=== PATIENT | female | born 1940 | race Caucasian/White ===

== ENCOUNTER 2017-09-17 18:30 | Inpatient (IN) | payer MEDICARE, OTHER ==
[2017-09-17] MEDS: SODIUM CHLORIDE 0.9% 1L BAG IV* (19:23)
[2017-09-17] MEDS: CEFEPIME 2GM/50 ML (PMX) 50 ML IVPB (19:25)
[2017-09-17 19:27] LABS: ADD MAN DIFF? NO
[2017-09-17 19:31] LABS: WHITE BLOOD COUNT 22.7 10^3/ul (4.8-10.8)
[2017-09-17 19:31] LABS: ABNORMAL IP MESSAGE 1; BASOPHILS % 0.1 % (0.0-2.0); HEMATOCRIT 26.1 % (37.0-47.0); HEMOGLOBIN 8.8 g/dl (12.0-16.0); LYMPHOCYTES # 0.7 10^3/ul (0.8-2.9); LYMPHOCYTES % 3.1 % (15.0-51.0); MEAN CORPUSCULAR HEMOGLOBIN 27.2 pg (29.0-33.0); MEAN CORPUSCULAR HGB CONC 33.7 g/dl (32.0-37.0); MEAN CORPUSCULAR VOLUME 80.8 fl (82.0-101.0); MEAN PLATELET VOLUME 10.4 fl (7.4-10.4); MONOCYTE # 1.3 10^3/ul (0.3-0.9); MONOCYTES % 5.5 % (0.0-11.0); NEUTROPHIL # 20.6 10^3/ul (1.6-7.5); NEUTROPHILS % 90.7 % (39.0-77.0); PLATELET COUNT 452 10^3/UL (140-415); RED BLOOD COUNT 3.23 10^6/ul (4.20-5.40); RED CELL DISTRIBUTION WIDTH 13.9 % (11.5-14.5)
[2017-09-17 19:38] LABS: POSITIVE DIFF @See below
[2017-09-17 19:47] LABS: INR 1.19; PROTIME 15.3 Sec (11.9-14.9); PT RATIO 1.2
[2017-09-17 19:48] LABS: PARTIAL THROMBOPLASTIN TIME 38.1 Sec (25.0-35.0)
[2017-09-17 19:53] LABS: ALANINE AMINOTRANSFERASE 30 IU/L (13-69); ALBUMIN 4.1 g/dl (3.3-4.9); ALKALINE PHOSPHATASE 98 IU/L (42-121); ANION GAP 19 (8-16); ASPARTATE AMINO TRANSFERASE 27 IU/L (15-46); BILIRUBIN,INDIRECT 0.4 mg/dl (0-1.1); BILIRUBIN,TOTAL 0.4 mg/dl (0.2-1.3); BLOOD UREA NITROGEN 13 mg/dl (7-20); CALCIUM 9.2 mg/dl (8.4-10.2); CARBON DIOXIDE 22 mmol/L (21-31); CHLORIDE 94 mmol/L (97-110); CREATININE 0.86 mg/dl (0.44-1.00); GLUCOSE 228 mg/dl (70-220); LIPASE 31 U/L (23-300); POTASSIUM 3.1 mmol/L (3.5-5.1); SODIUM 132 mmol/L (135-144); TOTAL PROTEIN 8.2 g/dl (6.1-8.1)
[2017-09-17 19:54] LABS: LACTIC ACID 1.3 mmol/L (0.5-2.0)
[2017-09-17 20:17] LABS: TROPONIN-I < 0.012 ng/ml (0.00-0.12)
[2017-09-17 20:39] LABS: URINE BLOOD (Dip) POC 3+ (NEGATIVE); URINE GLUCOSE (Dip) POC Negative (NEGATIVE); URINE KETONES (Dip) POC Trace (NEGATIVE); URINE LEUKOCYTE EST (Dip) POC 3+ (NEGATIVE); URINE NITRITE (Dip) POC Negative (NEGATIVE); URINE TOTAL PROTEIN POC 2+ (NEGATIVE)
[2017-09-17 21:03] LABS: ADD UMIC YES; UR ASCORBIC ACID NEGATIVE (NEGATIVE); UR BACTERIA MODERATE /HPF (NONE SEEN); UR BILIRUBIN (Dip) NEGATIVE (NEGATIVE); UR BLOOD (Dip) 2+ mg/dL (NEGATIVE); UR CLARITY CLOUDY (CLEAR); UR COLOR YELLOW (YELLOW); UR GLUCOSE (Dip) NEGATIVE (NEGATIVE); UR KETONES (Dip) TRACE mg/dL (NEGATIVE); UR LEUKOCYTE ESTERASE (Dip) 3+ Leu/ul (NEGATIVE); UR NITRITE (Dip) NEGATIVE (NEGATIVE); UR NONSQUAMOUS EPITHELIAL CELL 15 /HPF (NONE SEEN); UR RBC 15 /HPF (0-5); UR SPECIFIC GRAVITY (Dip) 1.015 (1.003-1.030); UR SQUAMOUS EPITHELIAL CELL MODERATE /HPF (FEW); UR TOTAL PROTEIN (Dip) 2+ mg/dl (NEGATIVE); UR UROBILINOGEN (Dip) NEGATIVE (NEGATIVE); UR WBC > 182 /HPF (0-5)
[2017-09-17] MEDS ORDERED: hydrALAzine 20 MG INJ IV (21:30)
[2017-09-17] MEDS ORDERED: NA PHOSPHATE/BIPHOS 133 ML ENEMA PR (21:30)
[2017-09-17] MEDS ORDERED: VANCOMYCIN IV PER PHARMACY XX (21:30)
[2017-09-17] MEDS ORDERED: MAGNESIUM HYDROXIDE 30ML CUP PO (21:30)
[2017-09-17] MEDS ORDERED: NACL 0.9% 3 ML SYG IV (21:30)
[2017-09-17] MEDS ORDERED: NITROGLYCERIN (SL) 0.4 MG TAB SL (21:30)
[2017-09-17] MEDS ORDERED: DOCUSATE SODIUM 100 MG CAP PO (21:30)
[2017-09-17 21:57] LABS: MAGNESIUM 1.5 mg/dl (1.7-2.5)
[2017-09-17] MEDS ORDERED: ACETAMINOPHEN 325 MG TAB PO (22:00)
[2017-09-17] MEDS ORDERED: ONDANSETRON 4 MG INJ IV (22:00)
[2017-09-17 22:07] LABS: B-TYPE NATRIURETIC PEPTIDE 3010 PG/ML (0-450)
[2017-09-17 22:09] LABS: LACTIC ACID 1.4 mmol/L (0.5-2.0)
[2017-09-17 22:14] LABS: FREE T4 (FREE THYROXINE) 1.21 ng/dl (0.78-2.44)
[2017-09-17] MEDS: POTASSIUM CHLORIDE (SR) 20 MEQ TAB PO (22:23)
[2017-09-17] MEDS: ONDANSETRON 4 MG INJ IV (22:24)
[2017-09-17] MEDS ORDERED: IOHEXOL 14.3 MG(I)/ML (ADULT) BTL PO (23:30)
[2017-09-18 00:04] LABS: LACTIC ACID 1.5 mmol/L (0.5-2.0)
[2017-09-18] MEDS: SOD CHLORIDE 0.9% 100 ML (01:28)
[2017-09-18] MEDS: IOHEXOL 300MG/ML 150 ML BTL (01:29)
[2017-09-18] MEDS: PIPER-TAZO 3.375 GM IV (PMX) 100 ML IVPB ×5 (03:35→23:27)
[2017-09-18] MEDS: ACETAMINOPHEN 325 MG TAB PO ×2 (03:35→20:36)
[2017-09-18] MEDS: VANCOMYCIN 2 GM in SOD CHLORIDE 0.9% 500 ML IVPB (03:58)
[2017-09-18 06:47] LABS: ADD MAN DIFF? NO
[2017-09-18] MEDS: SOD CHLORIDE 0.45% 1,000 ML IV ×2 (06:52→17:58)
[2017-09-18] MEDS: MAGNESIUM SULFATE 2 GM/50 ML 50 ML IVPB (06:52)
[2017-09-18 06:53] LABS: BASOPHILS % 0.1 % (0.0-2.0); HEMATOCRIT 24.6 % (37.0-47.0); HEMOGLOBIN 8.1 g/dl (12.0-16.0); LYMPHOCYTES # 0.8 10^3/ul (0.8-2.9); LYMPHOCYTES % 4.4 % (15.0-51.0); MEAN CORPUSCULAR HEMOGLOBIN 27.1 pg (29.0-33.0); MEAN CORPUSCULAR HGB CONC 32.9 g/dl (32.0-37.0); MEAN CORPUSCULAR VOLUME 82.3 fl (82.0-101.0); MEAN PLATELET VOLUME 10.1 fl (7.4-10.4); MONOCYTES % 5.8 % (0.0-11.0); NEUTROPHILS % 88.8 % (39.0-77.0); PLATELET COUNT 386 10^3/UL (140-415); RED BLOOD COUNT 2.99 10^6/ul (4.20-5.40)
[2017-09-18] MEDS: FAMOTIDINE 20 MG INJ IV (07:03)
[2017-09-18 07:23] LABS: ANION GAP 13 (8-16); BLOOD UREA NITROGEN 14 mg/dl (7-20); CALCIUM 8.6 mg/dl (8.4-10.2); CARBON DIOXIDE 24 mmol/L (21-31); CHLORIDE 99 mmol/L (97-110); CREATININE 0.87 mg/dl (0.44-1.00); GLUCOSE 214 mg/dl (70-220); MAGNESIUM 1.5 mg/dl (1.7-2.5); PHOSPHORUS 3.2 mg/dl (2.5-4.9); POTASSIUM 3.2 mmol/L (3.5-5.1); SODIUM 133 mmol/L (135-144)
[2017-09-18 07:28] LABS: CHOL/HDL RATIO 3.7 RATIO; HDL CHOLESTEROL 31 mg/dl (33-92); LDL CHOLESTEROL,CALCULATED 61 mg/dl; TRIGLYCERIDES 116 mg/dl (0-149)
[2017-09-18 07:28] LABS: CHOLESTEROL 115 mg/dl (100-200)
[2017-09-18 07:39] LABS: HEMOGLOBIN A1C 6.3 % (0-5.9)
[2017-09-18] MEDS: LORAZEPAM 2 MG INJ IV (07:52)
[2017-09-18 08:02] LABS: CARCINOEMBRYONIC ANTIGEN 5.2 ng/ml (0.0-5.0)
[2017-09-18 08:06] LABS: CANCER ANTIGEN 19-9 8.4 U/ml (0.0-37.0)
[2017-09-18 08:23] LABS: ALPHA FETOPROTEIN 1.97 IU/L (0.00-7.21)
[2017-09-18] MEDS: GABAPENTIN 300 MG CAP PO ×3 (08:40→20:36)
[2017-09-18] MEDS: POTASSIUM CHLORIDE (SR) 10 MEQ TAB PO ×3 (08:41→20:36)
[2017-09-18] MEDS: HEPARIN 5,000 UNIT/0.5 ML VIAL SC ×2 (08:42→20:39)
[2017-09-18] MEDS: MAGNESIUM SULFATE 3 GM in DEXTROSE 5% 100 ML IVPB (14:08)
[2017-09-18] MEDS: INSULIN DETEMIR [LEVEMIR] 3ML CART SC (20:38)
[2017-09-19] MEDS: morphine 2 MG INJ IV ×3 (00:47→18:22)
[2017-09-19] MEDS: VANCOMYCIN 1.25 GM in SOD CHLORIDE 0.45% 250 ML IVPB (00:47)
[2017-09-19] MEDS: PIPER-TAZO 3.375 GM IV (PMX) 100 ML IVPB ×2 (05:28→12:23)
[2017-09-19 09:29] LABS: ADD MAN DIFF? NO
[2017-09-19 09:33] LABS: WHITE BLOOD COUNT 20.7 10^3/ul (4.8-10.8)
[2017-09-19 09:33] LABS: BASOPHILS % 0.1 % (0.0-2.0); HEMATOCRIT 26.9 % (37.0-47.0); HEMOGLOBIN 8.6 g/dl (12.0-16.0); LYMPHOCYTES # 1.6 10^3/ul (0.8-2.9); LYMPHOCYTES % 7.5 % (15.0-51.0); MEAN CORPUSCULAR VOLUME 84.3 fl (82.0-101.0); MEAN PLATELET VOLUME 10.9 fl (7.4-10.4); MONOCYTES % 4.6 % (0.0-11.0); NEUTROPHILS % 87.1 % (39.0-77.0); PLATELET COUNT 411 10^3/UL (140-415); RED BLOOD COUNT 3.19 10^6/ul (4.20-5.40); RED CELL DISTRIBUTION WIDTH 14.5 % (11.5-14.5)
[2017-09-19] MEDS: SOD CHLORIDE 0.45% 1,000 ML IV (09:41)
[2017-09-19] MEDS: FAMOTIDINE 20 MG INJ IV (09:41)
[2017-09-19] MEDS: GABAPENTIN 300 MG CAP PO ×3 (09:42→20:57)
[2017-09-19] MEDS: POTASSIUM CHLORIDE (SR) 10 MEQ TAB PO ×2 (09:42→20:56)
[2017-09-19] MEDS: HEPARIN 5,000 UNIT/0.5 ML VIAL SC ×2 (09:45→21:01)
[2017-09-19] MEDS: ONDANSETRON 4 MG INJ IV ×2 (09:58→18:22)
[2017-09-19 10:01] LABS: ANION GAP 15 (8-16); BLOOD UREA NITROGEN 16 mg/dl (7-20); CALCIUM 8.8 mg/dl (8.4-10.2); CARBON DIOXIDE 20 mmol/L (21-31); CHLORIDE 106 mmol/L (97-110); CREATININE 0.93 mg/dl (0.44-1.00); GLUCOSE 108 mg/dl (70-220); POTASSIUM 4.1 mmol/L (3.5-5.1); SODIUM 137 mmol/L (135-144)
[2017-09-19 10:27] LABS: MAGNESIUM 2.5 mg/dl (1.7-2.5)
[2017-09-19 10:27] LABS: PHOSPHORUS 2.4 mg/dl (2.5-4.9)
[2017-09-19 10:36] LABS: LIPASE 45 U/L (23-300)
[2017-09-19] MEDS: INSULIN DETEMIR [LEVEMIR] 3ML CART SC (21:02)
[2017-09-20] MEDS: morphine 2 MG INJ IV ×3 (04:47→20:44)
[2017-09-20] MEDS: GABAPENTIN 300 MG CAP PO ×3 (08:12→20:47)
[2017-09-20] MEDS: POTASSIUM CHLORIDE (SR) 10 MEQ TAB PO ×2 (08:12→20:47)
[2017-09-20] MEDS: HEPARIN 5,000 UNIT/0.5 ML VIAL SC ×2 (08:15→20:55)
[2017-09-20 08:24] LABS: ADD MAN DIFF? NO
[2017-09-20 08:28] LABS: BASOPHILS % 0.2 % (0.0-2.0); EOSINOPHILS % 0.1 % (0.0-7.0); HEMATOCRIT 26.6 % (37.0-47.0); HEMOGLOBIN 8.4 g/dl (12.0-16.0); LYMPHOCYTES # 1.8 10^3/ul (0.8-2.9); LYMPHOCYTES % 9.1 % (15.0-51.0); MEAN CORPUSCULAR HEMOGLOBIN 26.7 pg (29.0-33.0); MEAN CORPUSCULAR HGB CONC 31.6 g/dl (32.0-37.0); MEAN CORPUSCULAR VOLUME 84.4 fl (82.0-101.0); MEAN PLATELET VOLUME 10.5 fl (7.4-10.4); MONOCYTE # 0.8 10^3/ul (0.3-0.9); MONOCYTES % 4.1 % (0.0-11.0); NEUTROPHIL # 17.1 10^3/ul (1.6-7.5); NEUTROPHILS % 85.8 % (39.0-77.0); PLATELET COUNT 485 10^3/UL (140-415); RED BLOOD COUNT 3.15 10^6/ul (4.20-5.40); RED CELL DISTRIBUTION WIDTH 14.8 % (11.5-14.5)
[2017-09-20 08:28] LABS: WHITE BLOOD COUNT 19.9 10^3/ul (4.8-10.8)
[2017-09-20 08:52] LABS: ANION GAP 12 (8-16); BLOOD UREA NITROGEN 15 mg/dl (7-20); CARBON DIOXIDE 23 mmol/L (21-31); CHLORIDE 105 mmol/L (97-110); CREATININE 0.94 mg/dl (0.44-1.00); GLUCOSE 122 mg/dl (70-220); POTASSIUM 4.4 mmol/L (3.5-5.1); SODIUM 136 mmol/L (135-144)
[2017-09-20] MEDS: LIDOCAINE 1% (MDV) 20 ML INJ (14:25)
[2017-09-20] MEDS: MIDAZOLAM 1 MG/ML 2 ML INJ (14:45)
[2017-09-20] MEDS: FENTAnyl 50 MCG/ML VIAL (14:45)
[2017-09-20] MEDS: SOD CHLORIDE 0.9% 500 ML (14:46)
[2017-09-20] MEDS ORDERED: GLUCAGON 1 MG INJ IM (20:30)
[2017-09-20] MEDS ORDERED: DEXTROSE 50% 50 ML SYRINGE IV ×2 (20:30)
[2017-09-20] MEDS ORDERED: GLUCOSE GEL 15 GRAM TUBE BUCCAL (20:30)
[2017-09-20] MEDS ORDERED: GLUCOSE GEL 15 GRAM TUBE PO ×2 (20:30)
[2017-09-20] MEDS: INSULIN DETEMIR [LEVEMIR] 3ML CART SC (20:53)
[2017-09-20] MEDS ORDERED: VITAMIN A & D 5 GM OINT PACKET TOP (21:56)
[2017-09-21] MEDS: morphine 2 MG INJ IV ×4 (02:05→19:45)
[2017-09-21 07:27] LABS: ADD MAN DIFF? NO
[2017-09-21 07:33] LABS: BASOPHILS % 0.2 % (0.0-2.0); EOSINOPHILS % 0.2 % (0.0-7.0); HEMATOCRIT 27.1 % (37.0-47.0); HEMOGLOBIN 8.6 g/dl (12.0-16.0); LYMPHOCYTES # 1.4 10^3/ul (0.8-2.9); LYMPHOCYTES % 8.4 % (15.0-51.0); MEAN CORPUSCULAR HGB CONC 31.7 g/dl (32.0-37.0); MEAN PLATELET VOLUME 10.4 fl (7.4-10.4); MONOCYTE # 0.8 10^3/ul (0.3-0.9); MONOCYTES % 4.6 % (0.0-11.0); NEUTROPHIL # 14.3 10^3/ul (1.6-7.5); NEUTROPHILS % 85.9 % (39.0-77.0); PLATELET COUNT 423 10^3/UL (140-415); RED BLOOD COUNT 3.19 10^6/ul (4.20-5.40); RED CELL DISTRIBUTION WIDTH 15.1 % (11.5-14.5)
[2017-09-21 07:33] LABS: WHITE BLOOD COUNT 16.7 10^3/ul (4.8-10.8)
[2017-09-21 07:47] LABS: ANION GAP 14 (8-16); BLOOD UREA NITROGEN 14 mg/dl (7-20); CALCIUM 9.2 mg/dl (8.4-10.2); CARBON DIOXIDE 23 mmol/L (21-31); CHLORIDE 104 mmol/L (97-110); CREATININE 0.84 mg/dl (0.44-1.00); GLUCOSE 116 mg/dl (70-220); POTASSIUM 4.6 mmol/L (3.5-5.1); SODIUM 136 mmol/L (135-144)
[2017-09-21] MEDS: GABAPENTIN 300 MG CAP PO ×4 (08:13→21:48)
[2017-09-21] MEDS: POTASSIUM CHLORIDE (SR) 10 MEQ TAB PO ×2 (08:14→21:48)
[2017-09-21] MEDS: HEPARIN 5,000 UNIT/0.5 ML VIAL SC ×2 (08:16→21:47)
[2017-09-21] MEDS: FUROSEMIDE 40 MG TAB PO (14:17)
[2017-09-21] MEDS: ALBUTEROL/IPRATROPIUM (NEB) 3 ML AMP HHN ×2 (14:40→20:42)
[2017-09-21] MEDS: INSULIN DETEMIR [LEVEMIR] 3ML CART SC (21:47)
[2017-09-22] MEDS: morphine 2 MG INJ IV ×2 (02:23→11:28)
[2017-09-22 06:22] LABS: ADD MAN DIFF? NO
[2017-09-22 06:33] LABS: BASOPHILS % 0.2 % (0.0-2.0); EOSINOPHILS # 0.1 10^3/ul (0.0-0.5); EOSINOPHILS % 0.9 % (0.0-7.0); HEMATOCRIT 27.4 % (37.0-47.0); HEMOGLOBIN 8.7 g/dl (12.0-16.0); LYMPHOCYTES # 1.9 10^3/ul (0.8-2.9); LYMPHOCYTES % 13.9 % (15.0-51.0); MEAN CORPUSCULAR HEMOGLOBIN 26.6 pg (29.0-33.0); MEAN CORPUSCULAR HGB CONC 31.8 g/dl (32.0-37.0); MEAN CORPUSCULAR VOLUME 83.8 fl (82.0-101.0); MEAN PLATELET VOLUME 10.4 fl (7.4-10.4); MONOCYTE # 0.8 10^3/ul (0.3-0.9); NEUTROPHIL # 10.6 10^3/ul (1.6-7.5); NEUTROPHILS % 77.8 % (39.0-77.0); PLATELET COUNT 475 10^3/UL (140-415); RED BLOOD COUNT 3.27 10^6/ul (4.20-5.40); RED CELL DISTRIBUTION WIDTH 14.9 % (11.5-14.5)
[2017-09-22 06:33] LABS: WHITE BLOOD COUNT 13.6 10^3/ul (4.8-10.8)
[2017-09-22 07:05] LABS: ANION GAP 14 (8-16); BLOOD UREA NITROGEN 15 mg/dl (7-20); CALCIUM 9.1 mg/dl (8.4-10.2); CARBON DIOXIDE 28 mmol/L (21-31); CHLORIDE 97 mmol/L (97-110); CREATININE 0.97 mg/dl (0.44-1.00); GLUCOSE 122 mg/dl (70-220); POTASSIUM 4.9 mmol/L (3.5-5.1); SODIUM 134 mmol/L (135-144)
[2017-09-22 07:10] LABS: MAGNESIUM 1.6 mg/dl (1.7-2.5)
[2017-09-22 07:10] LABS: PHOSPHORUS 5.3 mg/dl (2.5-4.9)
[2017-09-22] MEDS: GABAPENTIN 300 MG CAP PO ×4 (09:05→22:41)
[2017-09-22] MEDS: HEPARIN 5,000 UNIT/0.5 ML VIAL SC ×2 (09:06→22:46)
[2017-09-22] MEDS: POTASSIUM CHLORIDE (SR) 10 MEQ TAB PO ×2 (09:07→22:43)
[2017-09-22] MEDS: FUROSEMIDE 40 MG TAB PO (09:13)
[2017-09-22] MEDS: HYDROCODONE/APAP (5/325) TAB PO (09:20)
[2017-09-22] MEDS: ALBUTEROL/IPRATROPIUM (NEB) 3 ML AMP HHN ×4 (10:30→23:43)
[2017-09-22] MEDS: MAGNESIUM OXIDE 400 MG TAB PO (16:32)
[2017-09-22] MEDS: INSULIN DETEMIR [LEVEMIR] 3ML CART SC (22:45)
[2017-09-23] MEDS: morphine LIQ (10 MG/5 ML) CUP PO ×2 (01:32→20:08)
[2017-09-23 05:58] LABS: ADD MAN DIFF? NO
[2017-09-23 06:09] LABS: WHITE BLOOD COUNT 11.8 10^3/ul (4.8-10.8)
[2017-09-23 06:09] LABS: BASOPHILS % 0.3 % (0.0-2.0); EOSINOPHILS # 0.1 10^3/ul (0.0-0.5); EOSINOPHILS % 1.1 % (0.0-7.0); HEMOGLOBIN 8.7 g/dl (12.0-16.0); LYMPHOCYTES # 2.5 10^3/ul (0.8-2.9); LYMPHOCYTES % 20.8 % (15.0-51.0); MEAN CORPUSCULAR HEMOGLOBIN 26.8 pg (29.0-33.0); MEAN CORPUSCULAR HGB CONC 32.2 g/dl (32.0-37.0); MEAN CORPUSCULAR VOLUME 83.1 fl (82.0-101.0); MEAN PLATELET VOLUME 10.9 fl (7.4-10.4); MONOCYTE # 0.6 10^3/ul (0.3-0.9); MONOCYTES % 5.4 % (0.0-11.0); NEUTROPHIL # 8.3 10^3/ul (1.6-7.5); NEUTROPHILS % 70.6 % (39.0-77.0); PLATELET COUNT 496 10^3/UL (140-415); RED BLOOD COUNT 3.25 10^6/ul (4.20-5.40); RED CELL DISTRIBUTION WIDTH 15.1 % (11.5-14.5)
[2017-09-23 06:42] LABS: ANION GAP 17 (8-16); BLOOD UREA NITROGEN 17 mg/dl (7-20); CARBON DIOXIDE 26 mmol/L (21-31); CHLORIDE 97 mmol/L (97-110); CREATININE 1.05 mg/dl (0.44-1.00); GLUCOSE 116 mg/dl (70-220); POTASSIUM 4.9 mmol/L (3.5-5.1); SODIUM 135 mmol/L (135-144)
[2017-09-23] MEDS: ALBUTEROL/IPRATROPIUM (NEB) 3 ML AMP HHN ×3 (09:08→19:29)
[2017-09-23] MEDS: POTASSIUM CHLORIDE (SR) 10 MEQ TAB PO ×2 (09:35→23:30)
[2017-09-23] MEDS: GABAPENTIN 300 MG CAP PO ×3 (09:35→23:30)
[2017-09-23] MEDS: HEPARIN 5,000 UNIT/0.5 ML VIAL SC ×2 (09:37→23:58)
[2017-09-23] MEDS: FUROSEMIDE 40 MG TAB PO (09:38)
[2017-09-23] MEDS ORDERED: IOHEXOL 300MG/ML 150 ML BTL (18:53)
[2017-09-23] MEDS ORDERED: SOD CHLORIDE 0.9% 100 ML (18:53)
[2017-09-23] MEDS: LORAZEPAM 2 MG INJ IV (22:28)
[2017-09-23] MEDS: INSULIN DETEMIR [LEVEMIR] 3ML CART SC (23:58)
[2017-09-24 05:47] LABS: ADD MAN DIFF? NO
[2017-09-24 05:51] LABS: WHITE BLOOD COUNT 13.5 10^3/ul (4.8-10.8)
[2017-09-24 05:51] LABS: BASOPHIL # 0.1 10^3/ul (0.0-0.1); BASOPHILS % 0.5 % (0.0-2.0); EOSINOPHILS # 0.2 10^3/ul (0.0-0.5); EOSINOPHILS % 1.3 % (0.0-7.0); HEMATOCRIT 29.1 % (37.0-47.0); HEMOGLOBIN 9.1 g/dl (12.0-16.0); LYMPHOCYTES # 2.7 10^3/ul (0.8-2.9); LYMPHOCYTES % 19.8 % (15.0-51.0); MEAN CORPUSCULAR HEMOGLOBIN 25.9 pg (29.0-33.0); MEAN CORPUSCULAR HGB CONC 31.3 g/dl (32.0-37.0); MEAN CORPUSCULAR VOLUME 82.9 fl (82.0-101.0); MEAN PLATELET VOLUME 10.6 fl (7.4-10.4); MONOCYTE # 0.9 10^3/ul (0.3-0.9); MONOCYTES % 6.4 % (0.0-11.0); NEUTROPHIL # 9.2 10^3/ul (1.6-7.5); NEUTROPHILS % 68.3 % (39.0-77.0); PLATELET COUNT 554 10^3/UL (140-415); RED BLOOD COUNT 3.51 10^6/ul (4.20-5.40)
[2017-09-24 06:24] LABS: ANION GAP 17 (8-16); BLOOD UREA NITROGEN 21 mg/dl (7-20); CALCIUM 9.7 mg/dl (8.4-10.2); CARBON DIOXIDE 27 mmol/L (21-31); CHLORIDE 98 mmol/L (97-110); CREATININE 1.17 mg/dl (0.44-1.00); GLUCOSE 123 mg/dl (70-220); SODIUM 137 mmol/L (135-144)
[2017-09-24] MEDS: ALBUTEROL/IPRATROPIUM (NEB) 3 ML AMP HHN ×3 (07:54→19:07)
[2017-09-24] MEDS: GABAPENTIN 300 MG CAP PO ×3 (09:22→20:43)
[2017-09-24] MEDS: FUROSEMIDE 40 MG TAB PO (09:23)
[2017-09-24] MEDS: POTASSIUM CHLORIDE (SR) 10 MEQ TAB PO ×2 (09:23→20:41)
[2017-09-24] MEDS: HEPARIN 5,000 UNIT/0.5 ML VIAL SC ×2 (09:24→20:48)
[2017-09-24] MEDS: morphine LIQ (10 MG/5 ML) CUP PO ×2 (15:29→23:34)
[2017-09-24] MEDS: INSULIN DETEMIR [LEVEMIR] 3ML CART SC (20:55)
[2017-09-25] MEDS: morphine LIQ (10 MG/5 ML) CUP PO ×3 (06:04→22:29)
[2017-09-25 06:15] LABS: ADD MAN DIFF? NO
[2017-09-25 06:23] LABS: BASOPHILS % 0.3 % (0.0-2.0); EOSINOPHILS # 0.2 10^3/ul (0.0-0.5); EOSINOPHILS % 1.6 % (0.0-7.0); HEMATOCRIT 28.2 % (37.0-47.0); HEMOGLOBIN 9.2 g/dl (12.0-16.0); LYMPHOCYTES # 2.9 10^3/ul (0.8-2.9); LYMPHOCYTES % 23.1 % (15.0-51.0); MEAN CORPUSCULAR HEMOGLOBIN 26.8 pg (29.0-33.0); MEAN CORPUSCULAR HGB CONC 32.6 g/dl (32.0-37.0); MEAN CORPUSCULAR VOLUME 82.2 fl (82.0-101.0); MEAN PLATELET VOLUME 10.6 fl (7.4-10.4); MONOCYTE # 0.8 10^3/ul (0.3-0.9); NEUTROPHIL # 8.3 10^3/ul (1.6-7.5); NEUTROPHILS % 65.8 % (39.0-77.0); PLATELET COUNT 590 10^3/UL (140-415); RED BLOOD COUNT 3.43 10^6/ul (4.20-5.40); RED CELL DISTRIBUTION WIDTH 15.2 % (11.5-14.5)
[2017-09-25 06:23] LABS: WHITE BLOOD COUNT 12.6 10^3/ul (4.8-10.8)
[2017-09-25 07:01] LABS: ANION GAP 15 (8-16); BLOOD UREA NITROGEN 22 mg/dl (7-20); CALCIUM 9.6 mg/dl (8.4-10.2); CARBON DIOXIDE 26 mmol/L (21-31); CHLORIDE 97 mmol/L (97-110); CREATININE 1.26 mg/dl (0.44-1.00); GLUCOSE 132 mg/dl (70-220); POTASSIUM 5.1 mmol/L (3.5-5.1); SODIUM 133 mmol/L (135-144)
[2017-09-25] MEDS: ALBUTEROL/IPRATROPIUM (NEB) 3 ML AMP HHN ×3 (08:30→21:03)
[2017-09-25] MEDS: POTASSIUM CHLORIDE (SR) 10 MEQ TAB PO ×2 (09:09→20:23)
[2017-09-25] MEDS: FUROSEMIDE 40 MG TAB PO (09:10)
[2017-09-25] MEDS: GABAPENTIN 300 MG CAP PO ×3 (09:10→20:23)
[2017-09-25] MEDS: HEPARIN 5,000 UNIT/0.5 ML VIAL SC ×2 (09:13→20:28)
[2017-09-25 17:00] LABS: OSMOLALITY 284 mOsm/kg (280-295)
[2017-09-25] MEDS: INSULIN DETEMIR [LEVEMIR] 3ML CART SC (20:27)
[2017-09-26 06:42] LABS: ANION GAP 15 (8-16); BLOOD UREA NITROGEN 21 mg/dl (7-20); CALCIUM 9.2 mg/dl (8.4-10.2); CARBON DIOXIDE 26 mmol/L (21-31); CHLORIDE 97 mmol/L (97-110); CREATININE 1.25 mg/dl (0.44-1.00); GLUCOSE 128 mg/dl (70-220); POTASSIUM 4.8 mmol/L (3.5-5.1); SODIUM 133 mmol/L (135-144)
[2017-09-26] MEDS: ALBUTEROL/IPRATROPIUM (NEB) 3 ML AMP HHN ×2 (07:22→13:45)
[2017-09-26] MEDS: GABAPENTIN 300 MG CAP PO ×2 (08:27→13:30)
[2017-09-26] MEDS: FUROSEMIDE 40 MG TAB PO (08:28)
[2017-09-26] MEDS: POTASSIUM CHLORIDE (SR) 10 MEQ TAB PO (08:28)
[2017-09-26] MEDS: HEPARIN 5,000 UNIT/0.5 ML VIAL SC (08:32)
[2017-09-26] MEDS: morphine LIQ (10 MG/5 ML) CUP PO ×2 (13:30→17:22)
[2017-09-26] MEDS ORDERED: MAGNESIUM HYDROXIDE 30ML CUP PO (14:00)
[2017-09-26] MEDS ORDERED: FAMOTIDINE 20 MG TAB PO (14:00)
[2017-09-26] MEDS: DOXYCYCLINE 100 MG TAB PO (17:22)
== END 2017-09-26 18:15 | disposition home or self-care (01) | DRG 755 ==
LOC: MS4 21:36 → MS2 09-20 06:38 → E/R 18:30
PROC: 0DBU3ZX Excision of Omentum, Percutaneous Approach, Diagnostic (ICD-10-PCS; principal; 2017-09-20)
DX: C54.1 Malignant neoplasm of endometrium (principal); J81.1 Chronic pulmonary edema; N17.9 Acute kidney failure, unspecified; C78.7 Secondary malignant neoplasm of liver and intrahepatic bile duct; E11.65 Type 2 diabetes mellitus with hyperglycemia; E88.81 Metabolic syndrome and other insulin resistance; N39.0 Urinary tract infection, site not specified; E87.1 Hypo-osmolality and hyponatremia; Z68.41 Body mass index [BMI] 40.0-44.9, adult; B96.89 Other specified bacterial agents as the cause of diseases classified elsewhere; E66.01 Morbid (severe) obesity due to excess calories; I10 Essential (primary) hypertension; Z90.710 Acquired absence of both cervix and uterus; Z98.1 Arthrodesis status; I51.7 Cardiomegaly; I48.91 Unspecified atrial fibrillation; N28.1 Cyst of kidney, acquired; Z90.49 Acquired absence of other specified parts of digestive tract; D64.9 Anemia, unspecified; G89.3 Neoplasm related pain (acute) (chronic); K42.9 Umbilical hernia without obstruction or gangrene; Z90.722 Acquired absence of ovaries, bilateral; Z90.79 Acquired absence of other genital organ(s)
CPT/HCPCS: 36415; 71045; 71260; 74176; 74177; 74182; 77012; 80048; 80053; 80061; 81001; 81003; 82105; 82378; 82962; 83036; 83605; 83690; 83735; 83880; 83930; 84100; 84439; 84443; 84484; 85025; 85610; 85730; 86301; 86304; 87040; 87086; 87400; 88307; 88313; 88341; 88342; 93005; 93306; 94640; 94664; 96374; 96375; 97110; 97116; 97167; 97530; 99291-25